=== PATIENT | female | born 1970 | race Hispanic/Latino ===

== ENCOUNTER → 2018-06-09 | Outpatient (CLI) | payer OTHER ==
--- NOTE | 2018-06-09 16:21 | Diagnostic Imaging Report ---
#[id number] - USBRECOMLT ULTRASOUND OF THE LEFT BREAST : 06/09/2018 Comparison is made to exams dated: 05/02/2018 mammogram and 09/19/2016 mammogram - [facility]. Color flow and real-time ultrasound were performed on the entire left breast with scanning in all four quadrants, retroareolar region and the left axilla. There are multiple benign cysts present: -At 12 o'clock 2 cm from the nipple measuring 8 x 5 x 8 mm -At 12 o'clock 1 cm from the nipple measuring 4 x 3 x 5 mm -At 1 o'clock 2 cm from the nipple measuring 3 x 4 x 4 mm -At 3 o'clock 2.5 cm from the nipple measuring 7 x 7 x 8 mm (this one likely corresponds to the mammographic finding) IMPRESSION: BENIGN Multiple benign appearing cysts as described above. There is no sonographic evidence of malignancy. A 1 year screening mammogram is recommended. Keenan Diehl Jr., D.O. cw/:06/09/2018 10:59:50 Harness Tier: RJ LEWIS [facility] letter sent: Normal Exam Ultrasound BI-RADS: 2 Benign
== END ==
LOC: US 09:15
PROVIDERS: ATTEND Surgery
DX: N63.20 Unspecified lump in the left breast, unspecified quadrant (principal)

== ENCOUNTER → 2019-06-21 | Outpatient (CLI) | payer OTHER ==
--- NOTE | 2019-06-28 08:44 | Diagnostic Imaging Report ---
#[id number] - MGSCRBIL #BILATERAL DIGITAL SCREENING MAMMOGRAM WITH CAD: 06/21/2019 CLINICAL: Routine screening. Comparison is made to exams dated: 06/09/2018 ultrasound - [facility], 05/02/2018 mammogram and 09/19/2016 mammogram - [facility]. Current study contains 4 films. The tissue of both breasts is heterogeneously dense. This may lower the sensitivity of mammography. Current study was also evaluated with a Computer Aided Detection (CAD) system. No significant masses, calcifications, or other findings are seen in either breast. IMPRESSION: NEGATIVE There is no mammographic evidence of malignancy. A 1 year screening mammogram is recommended. The patient will be notified by letter of the results. SHAUNA FRANCIS M.D. ct/penrad:06/27/2019 09:55:11 Optical Glass Etcher: Lorena SAWANT(Sherri)(M), [facility] letter sent: Normal Exam Mammogram BI-RADS: 1 Negative
== END ==
LOC: MAMMO 10:40
PROVIDERS: ATTEND Surgery
DX: Z12.31 Encounter for screening mammogram for malignant neoplasm of breast (principal)
CPT/HCPCS: 77067

== ENCOUNTER → 2020-09-03 | Outpatient (CLI) | payer OTHER | LOC: MAMMO 13:09 | PROVIDERS: ATTEND Surgery | DX: Z12.31 Encounter for screening mammogram for malignant neoplasm of breast (principal) | CPT/HCPCS: 77067 ==

== ENCOUNTER → 2021-06-10 | Outpatient (CLI) | payer OTHER | LOC: US 16:24 | PROVIDERS: ATTEND Internal Medicine Gastroenterology | DX: R74.8 Abnormal levels of other serum enzymes (principal) | CPT/HCPCS: 76705 ==

== ENCOUNTER → 2024-07-14 | Outpatient (REF) | payer BC | LOC: MAMMO 08:31 | PROVIDERS: ATTEND Family Medicine | DX: Z12.31 Encounter for screening mammogram for malignant neoplasm of breast (principal) | CPT/HCPCS: 77067 ==